=== PATIENT | male | born 1975 | race Caucasian/White ===

== ENCOUNTER 2020-06-22 19:23 | Emergency (ER) | payer OTHER ==
[2020-06-22 20:29] LABS: BILIRUBIN NEGATIVE (NEGATIVE); BLOOD 3+ Ery/uL (NEGATIVE); CLARITY CLOUDY (CLEAR); COLOR RED (YELLOW); GLUCOSE (U) 2+ mg/dL (NORMAL); LEUKOCYTES NEGATIVE Leu/uL (NEGATIVE); NITRITE NEGATIVE (NEGATIVE); PROTEIN TRACE (LOW) mg/dL (NEGATIVE); pH 7.5 (5.0-9.0)
[2020-06-22 20:34] LABS: BACTERIA TRACE; SQUAMOUS EPITHELIAL CELLS RARE; URINARY RBC TNTC
[2020-06-22 20:39] LABS: BASOPHIL 1.1 % (0-2); EOSINOPHIL 3.2 % (0-5); HCT 45.9 % (42.0-52.0); LYMPHOCYTE 42.5 % (15-48); MCH 30.8 pg (25.0-31.0); MCHC 34.9 g/dL (32.0-36.0); MCV 88.4 fL (78.0-100.0); MPV 9.5 fL (6.0-9.5); NRBC 0; PLT 276 K/uL (150-400); RBC 5.19 M/uL (4.70-6.00); WBC 11.4 K/uL (4.0-10.5)
[2020-06-22 20:47] LABS: INR 1.06 (0.9-1.2); PROTHROMBIN TIME 13.1 SECONDS (11.4-13.6); PTT 25.2 SECONDS (22.2-34.7)
[2020-06-22 20:54] LABS: ALBUMIN 3.6 g/dL (3.4-5.0); BILIRUBIN - TOTAL 0.4 mg/dL (0.2-1.0); BUN/CREAT RATIO (CALC) 15.9 RATIO; CREATININE 0.88 mg/dL (0.67-1.17); GLOBULIN (CALCULATION) 3.5 g/dL; POTASSIUM 3.7 mmol/L (3.5-5.1); TOTAL PROTEIN 7.1 g/dL (6.4-8.2)
== END 2020-06-22 21:42 | disposition home or self-care (01) ==
LOC: FER 19:23
PROVIDERS: Emergency Medicine
DX: N20.0 Calculus of kidney (principal); F17.210 Nicotine dependence, cigarettes, uncomplicated
CPT/HCPCS: 36415; 80053; 81001; 85025; 85610; 85730; J7030

== ENCOUNTER 2021-08-16 22:56 | Emergency (ER) | payer OTHER ==
[2021-08-16 23:57] LABS: BASOPHIL 0.2 % (0-2); EOSINOPHIL 0.8 % (0-5); HCT 48.3 % (42.0-52.0); HGB 16.3 g/dl (13.2-18.0); LYMPHOCYTE 35.2 % (15-48); MCH 30.5 pg (25.0-31.0); MCHC 33.7 g/dL (32.0-36.0); MCV 90.3 fL (78.0-100.0); MONOCYTE 2.5 % (0-12); MPV 10.3 fL (6.0-9.5); NEUTROPHIL 60.1 % (41-80); NRBC 0; PLT 303 K/uL (150-400); RBC 5.35 M/uL (4.70-6.00); RDW 13.2 % (11.5-14.0); WBC 13.8 K/uL (4.0-10.5)
[2021-08-17 00:10] LABS: ALBUMIN 3.5 g/dL (3.4-5.0); BILIRUBIN - TOTAL 0.4 mg/dL (0.2-1.0); BUN/CREAT RATIO (CALC) 11.5 RATIO; CREATININE 1.22 mg/dL (0.67-1.17); GLOBULIN (CALCULATION) 3.8 g/dL; POTASSIUM 3.5 mmol/L (3.5-5.1); TOTAL PROTEIN 7.3 g/dL (6.4-8.2)
[2021-08-17 02:15] LABS: BILIRUBIN 2+ mg/dL (NEGATIVE); BLOOD 3+ Ery/uL (NEGATIVE); GLUCOSE (U) 1+ mg/dL (NORMAL); LEUKOCYTES 1+ Leu/uL (NEGATIVE); NITRITE POSITIVE (NEGATIVE); PROTEIN 3+ mg/dL (NEGATIVE); SPECIFIC GRAVITY 1.025 (1.001-1.030); pH 5.5 (5.0-9.0)
[2021-08-17 02:18] LABS: CLARITY CLOUDY (CLEAR); COLOR BROWN (YELLOW)
[2021-08-17 02:22] LABS: BACTERIA 1+; URINARY RBC TNTC
== END 2021-08-17 06:07 | disposition home or self-care (01) ==
LOC: FER 22:56
PROVIDERS: Emergency Medicine
DX: R55 Syncope and collapse (principal); J98.11 Atelectasis; F17.200 Nicotine dependence, unspecified, uncomplicated
CPT/HCPCS: 36415; 71045; 71275; 80053; 81001; 83690; 84484; 85025; 85379; 87088; 93005; 94010; J1170; J7030; Q9967